=== PATIENT | male | born 1990 | race African-American/Black ===

== ENCOUNTER 2018-09-28 17:56 | Emergency (ER) | payer SELFPAY ==
[2018-09-28] MEDS ORDERED: LORazepam 2 MG/ML SDV IVPUSH STA (18:09)
[2018-09-28] MEDS ORDERED: levETIRAcetam 500 MG in Sodium Chloride 0.9% 100 ML IV ONE (18:09)
[2018-09-28] MEDS ORDERED: Sodium Chloride 0.9% 10 ML Syringe FLUSH PRN (18:09)
[2018-09-28] MEDS ORDERED: Sodium Chloride 0.9% 1,000 ML IV ONE ×2 (18:10→19:48)
--- NOTE | 2018-09-28 19:01 | EDM.PDOC ---
ED HPI GENERAL MEDICAL PROBLEM - General Chief Complaint: Neurological Problem Stated Complaint: [facility] Time Seen by Provider: 09/28/18 18:01 Source of Information: Reports: Patient History Limitations: Reports: No Limitations - History of Present Illness INITIAL COMMENTS - FREE TEXT/NARRATIVE: 28-year-old male is brought in by EMS for suspected seizure. EMS was called to the [facility], the laundry room for somebody who likely had a seizure. Patient has a history of seizures and is on Keppra 1500mg twice a day. He has been out of his Keppra since early August. Relocated to [place] approximately 2 months ago and has not yet established with a primary care provider. Patient reports lasting remembering that he was cooking and then he remembers waking up in the ambulance. The seizure was unwitnessed. He is currently company of pain to the bilateral shoulder blades. His postictal and confused. No obvious signs of tongue trauma. Denies any bowel or bladder incontinence. Denies any headaches or nausea. Right Shoulder Pain Score (Numeric/FACES): 8 - Related Data Allergies Allergy/AdvReac Type Severity Reaction Status Date / Time No Known Allergies Allergy Verified 09/28/18 18:03 Home Meds: Home Meds levETIRAcetam [Keppra] 500 mg PO BID 09/28/18 [History] levETIRAcetam [Keppra] 500 mg PO BID #30 tablet 09/28/18 [Rx] Past Medical History Neurological History: Reports: Seizure Social & Family History - Tobacco Use Smoking Status *Q: Never Smoker - Recreational Drug Use Recreational Drug Use: No Drug Use in Last 12 Months: No ED ROS GENERAL - Review of Systems Review Of Systems: See Below GI/Abdominal: Denies: Nausea, Stool Incontinence : Denies: Incontinence Musculoskeletal: Reports: Shoulder Pain (bilateral ) Neurological: Reports: Seizure. Denies: Headache - Physical Exam Exam: See Below Exam Limited By: Other (lethagric, post ictal) General Appearance: WD/WN, No Apparent Distress, Lethargic Eye Exam: Bilateral Eye: EOMI, Normal Inspection, PERRL Ears: Normal External Exam Nose: Normal Inspection Throat/Mouth: Normal Inspection, Normal Voice, No Airway Compromise. No: Evidence of Tongue Biting Head Exam: Atraumatic, Normocephalic Neck: Normal Inspection, Supple, Non-Tender, Full Range of Motion Respiratory/Chest: No Respiratory Distress, Lungs Clear, Normal Breath Sounds Cardiovascular: Normal Peripheral Pulses, Regular Rate, Rhythm, No Murmur Neuro Exam (Abbreviated): Slow to Respond Psychiatric: Normal Affect, Normal Mood Skin Exam: Warm, Dry, Normal Color EKG INTERPRETATION EKG Date: 09/28/18 Time: 19:35 Rhythm: NSR Rate (Beats/Min): 91 [place]: Normal P-Wave: Present QRS: Normal ST-T: Normal QT: Normal EKG Interpretation Comments: nsr at 91 bpm. Ventricular bigeminy. Benign early repolarization. Reviewed by myself and Dr. Quintero. Course - Vital Signs Last Recorded V/S: Last Vital Signs Temp 98.7 F 09/28/18 18:01 Pulse 103 H 09/28/18 18:01 Resp 16 09/28/18 18:01 BP 193/97 H 09/28/18 18:01 Pulse Ox 98 09/28/18 18:01 - Orders/Labs/Meds Labs: Laboratory Tests 09/28/18 09/28/18 09/28/18 Range/Units 18:21 18:21 20:30 WBC 6.17 (4.23-9.07) K/mm3 RBC 5.42 (4.63-6.08) M/mm3 Hgb 16.3 (13.7-17.5) gm/L Hct 46.1 (40.1-51.0) % MCV 85.1 (79.0-92.2) fl MCH 30.1 (25.7-32.2) pg MCHC 35.4 (32.2-35.5) g/dl RDW Std Deviation 37.8 (35.1-43.9) fL Plt Count 220 (163-337) K/mm3 MPV 11.2 (9.4-12.3) fl Neut % (Auto) 46.8 (34.0-67.9) % Lymph % (Auto) 42.5 (21.8-53.1) % [place] % (Auto) 8.9 (5.3-12.2) % Eos % (Auto) 1.3 (0.8-7.0) Baso % (Auto) 0.3 (0.1-1.2) % Neut # (Auto) 2.89 (1.78-5.38) K/mm3 Lymph # (Auto) 2.62 (1.32-3.57) K/mm3 [place] # (Auto) 0.55 (0.30-0.82) K/mm3 Eos # (Auto) 0.08 (0.04-0.54) K/mm3 Baso # (Auto) 0.02 (0.01-0.08) K/mm3 Sodium 138 (136-145) mEq/L Potassium 3.6 (3.5-5.1) mEq/L Chloride 102 (98-107) mEq/L Carbon Dioxide 19 L (21-32) mEq/L Anion Gap 20.6 H (5-15) BUN 11 (7-18) mg/dL Creatinine 1.3 (0.7-1.3) mg/dL Est Cr Clr Drug Dosing 89.56 mL/min Estimated GFR (MDRD) > 60 (>60) mL/min BUN/Creatinine Ratio 8.5 L (14-18) Glucose 133 H (74-106) mg/dL Calcium 9.1 (8.5-10.1) mg/dL Magnesium 2.2 (1.8-2.4) mg/dl Total Bilirubin 0.3 (0.2-1.0) mg/dL AST 30 (15-37) U/L ALT 46 (16-63) U/L Alkaline Phosphatase 87 (46-116) U/L Total Protein 7.7 (6.4-8.2) g/dl Albumin 4.2 (3.4-5.0) g/dl Globulin 3.5 gm/dL Albumin/Globulin Ratio 1.2 (1-2) Urine Color Yellow (Yellow) Urine Appearance Clear (Clear) Urine pH 6.0 (5.0-8.0) Ur Specific [place] 1.020 (1.005-1.030) Urine Protein Trace H (Negative) Urine Glucose (UA) Negative (Negative) Urine Ketones Negative (Negative) Urine Occult Blood Trace-intact H (Negative) Urine Nitrite Negative (Negative) Urine Bilirubin Negative (Negative) Urine Urobilinogen 0.2 (0.2-1.0) Ur Leukocyte Esterase Negative (Negative) Urine RBC 0-5 (0-5) /hpf Urine WBC 0-5 (0-5) /hpf Ur Squamous Epith Cells 0-5 (0-5) /hpf Urine Bacteria Rare (FEW) /hpf Hyaline Casts 0-5 (0-5) /lpf Urine Mucus Rare (FEW) /hpf Urine Opiates Screen (TOTLEV=287) Ur Buprenorphine Scrn (CUTOFF=10) Ur Oxycodone Screen (GQX0GV=020) Urine Methadone Screen (ULP0EY=003) Ur Propoxyphene Screen (PVVDDK=070) Ur Barbiturates Screen (VMUXAG=145) Ur Tricyclics Screen (HMWRUI=831) Ur Phencyclidine Scrn (CUTOFF=25) Ur Amphetamine Screen (LUQLRF=336) U Methamphetamines Scrn (WMODJC=190) U Benzodiazepines Scrn (FVFXWL=347) U Cocaine Metab Screen (XJNCDH=192) U Marijuana (THC) Screen (CUTOFF=50) Ethyl Alcohol 0.00 (0.00) gm% 09/28/18 Range/Units 20:34 WBC (4.23-9.07) K/mm3 RBC (4.63-6.08) M/mm3 Hgb (13.7-17.5) gm/L Hct (40.1-51.0) % MCV (79.0-92.2) fl MCH (25.7-32.2) pg MCHC (32.2-35.5) g/dl RDW Std Deviation (35.1-43.9) fL Plt Count (163-337) K/mm3 MPV (9.4-12.3) fl Neut % (Auto) (34.0-67.9) % Lymph % (Auto) (21.8-53.1) % [place] % (Auto) (5.3-12.2) % Eos % (Auto) (0.8-7.0) Baso % (Auto) (0.1-1.2) % Neut # (Auto) (1.78-5.38) K/mm3 Lymph # (Auto) (1.32-3.57) K/mm3 [place] # (Auto) (0.30-0.82) K/mm3 Eos # (Auto) (0.04-0.54) K/mm3 Baso # (Auto) (0.01-0.08) K/mm3 Sodium (136-145) mEq/L Potassium (3.5-5.1) mEq/L Chloride (98-107) mEq/L Carbon Dioxide (21-32) mEq/L Anion Gap (5-15) BUN (7-18) mg/dL Creatinine (0.7-1.3) mg/dL Est Cr Clr Drug Dosing mL/min Estimated GFR (MDRD) (>60) mL/min BUN/Creatinine Ratio (14-18) Glucose (74-106) mg/dL Calcium (8.5-10.1) mg/dL Magnesium (1.8-2.4) mg/dl Total Bilirubin (0.2-1.0) mg/dL AST (15-37) U/L ALT (16-63) U/L Alkaline Phosphatase (46-116) U/L Total Protein (6.4-8.2) g/dl Albumin (3.4-5.0) g/dl Globulin gm/dL Albumin/Globulin Ratio (1-2) Urine Color (Yellow) Urine Appearance (Clear) Urine pH (5.0-8.0) Ur Specific [place] (1.005-1.030) Urine Protein (Negative) Urine Glucose (UA) (Negative) Urine Ketones (Negative) Urine Occult Blood (Negative) Urine Nitrite (Negative) Urine Bilirubin (Negative) Urine Urobilinogen (0.2-1.0) Ur Leukocyte Esterase (Negative) Urine RBC (0-5) /hpf Urine WBC (0-5) /hpf Ur Squamous Epith Cells (0-5) /hpf Urine Bacteria (FEW) /hpf Hyaline Casts (0-5) /lpf Urine Mucus (FEW) /hpf Urine Opiates Screen Negative (OKKKMQ=014) Ur Buprenorphine Scrn Negative (CUTOFF=10) Ur Oxycodone Screen Negative (FPV1OX=103) Urine Methadone Screen Negative (ATC9YS=863) Ur Propoxyphene Screen Negative (VCOQEW=916) Ur Barbiturates Screen Negative (NPJWJH=001) Ur Tricyclics Screen Negative (EUFHIC=907) Ur Phencyclidine Scrn Negative (CUTOFF=25) Ur Amphetamine Screen Negative (TDSXTP=248) U Methamphetamines Scrn Negative (IDSTGZ=913) U Benzodiazepines Scrn Negative (FLZWFS=280) U Cocaine Metab Screen Negative (KXGBFJ=375) U Marijuana (THC) Screen Negative (CUTOFF=50) Ethyl Alcohol (0.00) gm% Meds: Medications Discontinued Medications Generic Name Dose Route Start Last Admin Trade Name Freq PRN Reason Stop Dose Admin Levetiracetam 500 mg/ Sodium 105 mls @ 400 mls/hr 09/28/18 18:09 09/28/18 18: 24 Chloride IV 09/28/18 18:23 400 mls/hr ONETIME ONE Administration Sodium Chloride 1,000 mls @ 999 mls/hr 09/28/18 18:10 09/28/18 18:25 Normal Saline IV 09/28/18 19:10 999 mls/hr ONETIME ONE Administration Sodium Chloride 1,000 mls @ 999 mls/hr 09/28/18 19:48 09/28/18 20:48 Normal Saline IV 09/28/18 20:48 999 mls/hr ONETIME ONE Administration Ketorolac Tromethamine 30 mg 09/28/18 21:16 09/28/18 21:31 Toradol IVPUSH 09/28/18 21:17 30 mg ONETIME ONE Administration Lorazepam 1 mg 09/28/18 18:09 09/28/18 18:24 Ativan IVPUSH 09/28/18 18:10 1 mg NOW STA Administration Sodium Chloride 10 ml 09/28/18 18:09 09/28/18 18:25 Saline Flush FLUSH 10 ml ASDIRECTED PRN Administration Keep Vein Open - Radiology Interpretation Free Text/Narrative:: CT of the head without contrast impression per vrad: Mo hydrocephalus, acute intracranial hemorrhage or mass effect. - Re-Assessments/Exams Free Text/Narrative Re-Assessment/Exam: 09/28/18 22:06 Reviewed the lab and imaging with the patient. Patient has been sleeping for the most part in the ER. Will restart keppra at 500mg bid. Recommend follow-up and to establish with family med, recommendations given. EKG obtained as patient was on monitor and had frequent PVCs/episodes of bigeminy. Patient is asymptomatic with these. PVCs and bigeminy improved with hydration. Still had a few PVCs at time of discharge. Will still place patient on a 48 hour Holter monitor. Discharge instructions as documented. Departure - Departure Time of Disposition: 22:08 Disposition: Home, Self-Care 01 Condition: Fair Clinical Impression: Seizure, Shoulder pain - Discharge Information *PRESCRIPTION DRUG MONITORING PROGRAM REVIEWED*: No *COPY OF PRESCRIPTION DRUG MONITORING REPORT IN PATIENT [place]: No Prescriptions: levETIRAcetam [Keppra] 500 mg PO BID #30 tablet Instructions: Shoulder Pain, Seizure, Adult Referrals: PCP,None [Primary Care Provider] - Viky Leal MD [Physician] - Forms: ED Department Discharge Additional Instructions: Take the keppra as prescribed. 1 cap PO bid. Follow-up with Dr. Meza, call [phone] to schedule with her. Holter monitor as directed by RT. Rest. Drink plenty of fluids. Please return to the ER should your symptoms change or worsen.
[2018-09-28] MEDS ORDERED: Ketorolac 30 MG/ML SDV IVPUSH ONE (21:16)
--- NOTE | 2018-09-29 09:32 | CT ---
Head CT Technique: Multiple axial sections through the brain were obtained. Intravenous contrast was not utilized. Comparison: No prior intracranial imaging. Findings: Ventricles along with basal cisterns and sulci over the convexities are within normal limits for the patient's age. No abnormal parenchymal densities are seen. No evidence of intracranial hemorrhage. No midline shift or mass effect is seen. Mild mucosal thickening is seen within the ethmoid and frontal sinus. No acute calvarial abnormality is appreciated. Impression: 1. Minimal sinus findings which are believed to be incidental. 2. No acute intracranial abnormality is appreciated. Diagnostic code #2 I agree with preliminary report from ad, finalized on 09/28/18, 8:16 PM Central Time
--- NOTE | 2018-09-29 10:01 | CR ---
Right shoulder: Three views of the right shoulder were obtained. Several small lucencies are noted within the glenoid rim raising the possibility of previous right shoulder surgery. No acute fracture, dislocation or other bony abnormality is seen. Impression: 1. Lucencies within the glenoid rim raising the possibility of previous shoulder surgery. 2. Right shoulder study is otherwise unremarkable. Diagnostic code #2
--- NOTE | 2018-09-29 10:02 | CR ---
Left shoulder: Three views of the left shoulder were obtained. Comparison: No prior shoulder study. Acromioclavicular and glenohumeral joints appear within normal limits. No fracture, dislocation or other bony abnormality is appreciated. Impression: 1. No abnormality is identified on left shoulder study. Diagnostic code #1
== END 2018-09-28 22:37 | disposition home or self-care (01) ==
LOC: EDBD 17:56 → JD.ED 17:56
DX: R56.9 Unspecified convulsions (principal); M25.511 Pain in right shoulder; Z79.899 Other long term (current) drug therapy
CPT/HCPCS: 36415; 70450; 73030; 80053; 80306; 81001; 83735; 85025; 93005; 93225; 93226; 96361; 96365; 96375; 99285; G0480; J1885; J1953; J2060; J7030; J7040